=== PATIENT | male | born 1940 | race Two or more races ===

== ENCOUNTER 2017-10-07 11:38 | Inpatient (IN) | payer MEDICARE ==
--- NOTE | 2017-09-26 15:53 | HP ---
AMENDED REPORT NOW INCLUDES COSIGNER DESIGNATION - ESIGNED BEFORE ADJUSTMENT HISTORY AND PHYSICAL: DATE OF ADMISSION/SURGERY: 10/07/17 DATE OF OFFICE VISIT: 09/24/17 ATTENDING SURGEON: Dr. Sisi Dimas.* (DICTATED BY BETO US) PROCEDURE: Left total knee arthroplasty. CHIEF COMPLAINT: Left knee pain. HISTORY OF PRESENT ILLNESS: Mr. Ferguson is a 76-year-old gentleman with complaints of left knee pain secondary to end-stage osteoarthritis. He failed conservative treatment and elected to proceed with a left total knee arthroplasty, which is scheduled for 10/07/17. PAST MEDICAL HISTORY: Denies. PAST SURGICAL HISTORY: Right testicular surgery unknown. CURRENT MEDICATIONS: Ibuprofen 800 mg 3 times a day as needed. ALLERGIES: None. FAMILY HISTORY: Diabetes. SOCIAL HISTORY: This 76-year-old gentleman lives with his son and daughter-in- law. Denies use of drugs or alcohol. Does not smoke. REVIEW OF SYSTEMS: A complete 14-point review of systems was reviewed with the patient and it was all negative or noncontributory. PHYSICAL EXAMINATION GENERAL: He is well-developed, well-nourished, in no acute distress. VITAL SIGNS: He stands 5 feet 9 inches tall, weighs 232 pounds. His blood pressure is 154/78, his heart rate is 80. HEENT: Normocephalic, atraumatic. NECK: Supple. No palpable lymph nodes. PULMONARY: The lungs are clear to auscultation bilaterally. CARDIAC: Regular rate and rhythm. Strong S1, S2. ABDOMEN: Soft, nontender, and nondistended. MUSCULOSKELETAL: Left lower extremity: The skin is intact. There are no open wounds or abrasions. There is a moderate joint effusion. He has some tenderness over the medial lateral joint line. His range of motion is 15 to 120 degrees of flexion. There is a 10 degrees varus deformity. He has 2+ dorsalis pedis pulse and intact sensation. NEUROLOGIC: He is alert and oriented x3. ASSESSMENT AND PLAN: Mr. Ferguson is a 76-year-old gentleman with continued complaints of left knee pain secondary to end-stage osteoarthritis. He has failed conservative treatment and elected to proceed with a left total knee arthroplasty, which is scheduled for 10/07/[address] Dimas discussed the risks and benefits of the surgery at today's visit and all of his questions were answered. He will follow up with Dr. Dimas 2 weeks after the surgery. BETO US [id number]/[facility] #: [id number] [facility]PITALMadi
[~2017-10-07 11:38] MED LIST: Buffered Lidocaine 0.9% SYRIN* 5 ML/SYR SYRINGE INTRADERM ONE; Dexamethasone TAB* 4 MG PO ONE; DiMENhydriNATE IV* 50 MG/ML VIAL IV PUSH PRN; Famotidine TAB* 20 MG PO ONE; Gabapentin CAP(*) 300 MG PO ONE; Morphine INJ* 2 MG/ML 1 ML SYRINGE (TWO MG - NEW SYRINGE VERSION) IV PRN; Naloxone* 0.4 MG/ML 1 ML VIAL IV PRN; Ondansetron TAB* 4 MG PO ONE; PROCHLORPERAZINE INJ 5 MG/ML 2 ML VIAL IV PRN; Scopolamine 1.5 mg* PATCH TRANSDERM PRN; fentaNYL* 50 MCG/ML 2 ML VIAL (100 MCG VIAL) IV PRN; oxyCODONE/Acetamin 5/325 MG* TAB PO PRN
[2017-10-07] MEDS ORDERED: KETAMINE HCL* 50 MG/ML 10 ML VIAL ONE (11:40)
[2017-10-07] MEDS ORDERED: fentaNYL* 50 MCG/ML 2 ML VIAL (100 MCG VIAL) ONE (11:40)
[2017-10-07] MEDS ORDERED: Midazolam* 1 MG/ML 10 ML VIAL (10 MG) ONE (11:40)
--- OUTSIDE RECORDS SUMMARY | 2017-10-07 11:44 | XMS REPORT ---
:1940 External Reference #:[id number] Author Organization [facility] Address [address] [place] [address] [place] [address] Phone [phone] Care Team Providers Name Role Phone Deb Clemons FNP Primary Care Physician Unavailable Payers Type Date Identification Numbers Payment Provider Subscriber Medicare Primary Policy Number: [id number] Medicare Nathan Ferguson PayID: [id number] [facility] [address] [place] [address] Problems Date Description Provider Status Onset: 07/16/2017 Localized, primary osteoarthritis Sisi Dimas M.D. Active Family History Date Family Member(s) Problem(s) Comments General Diabetes Social History Type Date Description Comments Occupation Retired ETOH Use Denies alcohol use Smoking Patient has never smoked Exercise Type/Frequency Does not exercise Allergies, Adverse Reactions, Alerts Date Description Reaction Status Severity Comments 07/16/2017 NKDA active Medications Medication Date Status Form Strength Qnty SIG Indications Ordering Provider Ibuprofen Active Tablets 800mg by mouth Unknown 0 three times a day as needed Medications Administered in Office Medication Date Status Form Strength Qnty SIG Indications Ordering Provider Depomedrol Administered Injection Sisi 40MG 018 Shahbaz Dimas Depomedrol Administered Injection Sisi 40MG 018 Shabhaz Dimas Vital Signs Date Vital Result Comment 09/24/2017 Height 69 inches 5'9" Weight 232.00 lb Heart Rate 80 /min BP Systolic 154 mmHg BP Diastolic 78 mmHg BMI (Body Mass Index) 34.3 kg/m2 08/08/2017 Height 69 inches 5'9" Weight 231.00 lb BP Systolic Sitting 142 mmHg BP Diastolic Sitting 80 mmHg Respiratory Rate 16 /min Body Temperature 98.0 F Pain Level 0 BMI (Body Mass Index) 34.1 kg/m2 07/16/2017 Height 69 inches 5'9" Weight 231.00 lb Heart Rate 88 /min BP Systolic 150 mmHg BP Diastolic 88 mmHg BMI (Body Mass Index) 34.1 kg/m2 Results Description No Information Procedures Date CPT Code Description Status 07/16/2017 44846 Inject/Drain Joint/Bursa Major W/O US Completed Encounters Type Date Location Provider CPT E/M Dx Office Visit 08/08/2017 8:45a [facility] M.D. 27531 M17.0 [facility] M25.561 M25.562 M25.461 M25.462 Office Visit 07/16/2017 8:45a [facility] M.D. 58506 M17.0 [facility] M21.162 M21.161 M25.561 M25.562 M25.461 M25.462 Plan of Care Future Appointment(s):10/20/2017 8:30 am - Sisi Dimas M.D. at [facility]10/07/2017 2:30 pm - Uri Holt PA-C at [facility]10/07/2017 2:30 pm - BETO Hansen at [facility]10/07/2017 2:30 pm - Sisi Dimas M.D. at [facility]09/24/2017 - Sisi Dimas M.D.M17.0 Bilateral primary osteoarthritis of kneeFollow up:Follow up: 2 weeks after dewtdzoF75.562 Pain in left kneeM25.462 Effusion, left kneeM21.162 Varus deformity, not elsewhere classified, left knee
[2017-10-07] MEDS ORDERED: Ondansetron ODT TAB* 4 MG ONE (12:33)
[2017-10-07] MEDS ORDERED: Famotidine TAB* 20 MG ONE (12:33)
[2017-10-07] MEDS ORDERED: Gabapentin CAP(*) 300 MG ONE (12:33)
[2017-10-07] MEDS ORDERED: Dexamethasone TAB* 4 MG ONE (12:33)
[2017-10-07] MEDS ORDERED: ceFAZolin 2 GM PREMIX (*) 2 GM/50 ML BAG IVPB ONE (12:34)
[2017-10-07] MEDS ORDERED: Tranexamic Acid 1,000 MG/10 ML 1,000 MG in NS 0.9% 100 ML* 100 ML IV ONE (13:00)
[2017-10-07] MEDS ORDERED: Bupivacaine 0.5% PF 10 ML VIAL INJ ONE ×2 (15:57→16:47)
[2017-10-07] MEDS ORDERED: Labetalol IV* 5 MG/ML 20 ML VIAL ONE (16:46)
[2017-10-07] MEDS ORDERED: Lidocaine 2% PF * 5 ML VIAL ONE (16:46)
[2017-10-07] MEDS ORDERED: Propofol* 10 MG/ML 20 ML BTL IV PUSH ONE (16:47)
[2017-10-07] MEDS ORDERED: Bupivacaine 0.25% SDV PF* 10 ML VIAL INJ ONE (16:47)
[2017-10-07] MEDS ORDERED: Polyethylene Glycol 3350* 17 GM PACKET PO PRN (16:52)
[2017-10-07] MEDS ORDERED: Magnesium Hydroxide LIQ* 30 ML UDC PO PRN (16:52)
[2017-10-07] MEDS ORDERED: Bisacodyl SUPP* 10 MG SUPP PR PRN (16:52)
[2017-10-07] MEDS ORDERED: oxyCODONE/Acetamin 5/325 MG* TAB PO PRN (16:52)
[2017-10-07] MEDS ORDERED: Ondansetron TAB* 4 MG PO PRN (16:52)
[2017-10-07] MEDS ORDERED: diPHENhydraMINE IV* 50 MG/ML 1 ml VIAL (BENADRYL) IV PRN (16:52)
[2017-10-07] MEDS ORDERED: Ondansetron INJ* 2 MG/ML VIAL IV PRN (16:52)
[2017-10-07] MEDS ORDERED: Morphine INJ* 2 MG/ML 1 ML SYRINGE (TWO MG - NEW SYRINGE VERSION) IV PRN (16:52)
[2017-10-07] MEDS ORDERED: Warfarin TAB(*) 6 MG PO ONE (17:00)
--- NOTE | 2017-10-07 18:13 | RAD ---
Indication: Post LEFT total knee replacement. Comparison: July 16, 2017 radiographs. Technique: LEFT knee: AP and crosstable lateral views. Report: Total knee prosthesis in place. Negative for periprosthetic fracture. Gas and fluid noted in the joint space and superficial soft tissues anteriorly. IMPRESSION: #. Unremarkable immediate postop appearance following LEFT total knee replacement.
[2017-10-07] MEDS: Acetaminophen TAB* 325 MG PO SCH (18:31)
[2017-10-07] MEDS: Docusate CAP* 100 MG PO SCH (21:15)
[2017-10-07] MEDS: Magnesium Hydroxide LIQ* 30 ML UDC PO SCH (21:15)
[2017-10-07] MEDS: ceFAZolin 1 GM in Dextrose (*) 1 GM/50 ML BAG IVPB SCH (22:15)
[2017-10-08] MEDS: oxyCODONE TAB* 5 MG TAB PO PRN ×2 (00:12→08:54)
[2017-10-08] MEDS: Acetaminophen TAB* 325 MG PO SCH ×3 (01:28→15:30)
[2017-10-08] MEDS: oxyCODONE/Acetamin 5/325 MG* TAB PO PRN ×3 (04:33→17:22)
[2017-10-08 05:41] LABS: Hematocrit 39 % (42-52); Hemoglobin 13.5 g/dl (14.0-18.0); Mean Platelet Volume 7.6 um3 (7.4-10.4); Platelet Count 219 10^3/ul (150-450)
[2017-10-08 05:45] LABS: INR 1.08 (0.77-1.02)
[2017-10-08] MEDS: ceFAZolin 1 GM in Dextrose (*) 1 GM/50 ML BAG IVPB SCH ×2 (05:51→14:50)
[2017-10-08 05:55] LABS: EGFR Non-African American 75.2 (>60)
[2017-10-08] MEDS: Morphine TAB Extended Release (*) 15 MG TAB.ER PO SCH ×2 (08:54→20:48)
[2017-10-08] MEDS: Magnesium Hydroxide LIQ* 30 ML UDC PO SCH ×2 (08:55→20:49)
[2017-10-08] MEDS: Cyclobenzaprine TAB* 10 MG PO PRN ×2 (08:55→17:23)
[2017-10-08] MEDS: Docusate CAP* 100 MG PO SCH ×2 (08:55→20:49)
--- NOTE | 2017-10-08 09:02 | PN ---
Progress Note - Progress Note Date of Service: 10/08/17 SOAP: Subjective: []Patient seen at bedside. He feels well though he is having 8-9/10 pain with activity. At rest he has 7/10 pain. He is breathing well and has no complaints aside from cramping of the thigh. Objective: []General: Well appearing, NAD LLE: Left knee dressing CDI without erythema surrounding. DF/PF intact. DP2+ Calves supple and nontender without erythema, edema or palpable cords Assessment: []POD 1 sp left total knee arthroplasty Plan: []WBAT PT/OT Lovenox, coumadin 8 mg today Patient speaks primarily Mozambican. I am able to communicate with him well but please use a staff development manager if you have any difficulty or confusion Vital Signs Temp 97.7 F 10/08/17 00:07 Pulse 96 10/08/17 00:07 Resp 18 10/08/17 08:55 BP 154/86 10/08/17 00:07 Pulse Ox 97 10/08/17 00:07 Intake & Output 10/07/17 10/08/17 10/08/17 18:59 06:59 18:59 Intake Total 2300 995 100 Output Total 1000 925 Balance 1300 70 100 Weight 228 lb Intake: IV Fluids 2300 1GM TRANEXAMIC ACID 100ML 100 LR 2100 NS 100ML, Cefazolin 2G 100 IVPB 55 ABX - CEFAZOLIN 55 Oral 940 100 Output: Paulino 1000 925 Other: Estimated Blood Loss 400 Comment Laboratory Last Values Hgb 13.5 g/dl (14.0-18.0) L 10/08/17 05:21 Hct 39 % (42-52) L 10/08/17 05:21 Plt Count 219 10^3/ul (150-450) 10/08/17 05:21 MPV 7.6 um3 (7.4-10.4) 10/08/17 05:21 INR (Anticoag Therapy) 1.08 (0.77-1.02) H 10/08/17 05:22 Sodium 136 mmol/L (135-145) 10/08/17 05:22 Potassium 4.2 mmol/L (3.5-5.0) 10/08/17 05:22 Chloride 102 mmol/L (101-111) 10/08/17 05:22 Carbon Dioxide 25 mmol/L (22-32) 10/08/17 05:22 Anion Gap 9 mmol/L (2-11) 10/08/17 05:22 BUN 21 mg/dL (6-24) 10/08/17 05:22 Creatinine 0.97 mg/dL (0.67-1.17) 10/08/17 05:22 Est GFR ( Amer) 91.1 (>60) 10/08/17 05:22 Est GFR (Non-Af Amer) 75.2 (>60) 10/08/17 05:22 BUN/Creatinine Ratio 21.6 (8-20) H 10/08/17 05:22 Glucose 152 mg/dL (70-100) H 10/08/17 05:22 Calcium 8.8 mg/dL (8.6-10.3) 10/08/17 05:22
--- NOTE | 2017-10-08 10:15 | OP ---
DATE OF OPERATION: 10/07/17 - ROOM #353 DATE OF : 40 ATTENDING SURGEON: Sisi Dimas MD CLINICAL INFORMATICS PHYSICIAN: BETO Hair. Ms. Macedo did help throughout the procedure with preparation of the leg, wound retraction, manipulation of the knee, and wound closure. ANESTHESIOLOGIST: Dr. Zimmerman. ANESTHESIA: Spinal. PRE-OP DIAGNOSIS: Severe end-stage degenerative osteoarthritis of the left knee joint. POST-OP DIAGNOSIS: Severe end-stage degenerative osteoarthritis of the left knee joint. OPERATIVE PROCEDURE: Left total knee arthroplasty. BRIEF HISTORY/INDICATIONS: Mr. Ferguson is a 76-year-old male with years of increasingly severe left knee pain and deformity. Radiograph showed severe end - stage arthritis with [id number] contact with varus deformity. He failed conservative treatment with anti-inflammatories, physical therapy, and intra- articular injections. Due to continued pain and decreased quality of life, he elected to undergo left total knee arthroplasty. Informed consent was obtained from the patient. He understood the risks of surgery included, but were not limited to, bleeding, infection, damage to nearby structures, continued pain, need for further surgery, intraoperative fracture, nerve palsy, hardware failure or loosening, knee stiffness, loss of motion, stroke, heart attack, blood clot, and . The patient wished to proceed. INTRAOPERATIVE FINDINGS: Intraoperatively, the patient was noted to have severe end-stage arthritis with full-thickness loss of cartilage in all 3 compartments and extensive osteophyte formation. TOURNIQUET TIME: 49 minutes. COMPLICATIONS: None. ESTIMATED BLOOD LOSS: 200 cc. SPECIMEN: Bone and cartilage from the left knee joint sent to pathology. HARDWARE USED: This is cemented [employer] total knee arthroplasty hardware. Two packages of Simplex bone cement. For the femur, a left size 7 Oxinium posterior stabilized femoral component. For the tibia, Nesha II left tibial base plate size 7. For the insert, a 9 mm posterior stabilized articular insert size 7/8 and for the patella, a 38-mm 3-peg all poly patella. DESCRIPTION OF PROCEDURE: Mr. Ferguson was identified in the preanesthesia unit. His left lower extremity was marked as the correct operative side. Informed consent was signed and placed in the chart. The patient was taken to the operating room and placed under spinal anesthesia. A Paulino catheter was placed. Tourniquet was placed on the left thigh. Left lower extremity was prepped and draped in the usual sterile fashion. Preop time-out was made to correctly identify the patient, side, and site. Appropriate perioperative antibiotics were given within 1 hour of incision. Tourniquet was inflated and total tourniquet time for this procedure was 49 minutes. A midline incision was made with a 10-blade and carried down to the extensor mechanism. A new 10-blade was used to make a medial parapatellar arthrotomy. The patella was subluxed laterally. Electrocautery was used to subperiosteally elevate the soft tissue off the superomedial tibia. The knee was flexed up. Anterior horn of the lateral meniscus and ACL were sharply released. A drill was used to enter the distal femur. Intramedullary distal femoral cutting guide was pinned on the distal femur. An oscillating saw was used to make the distal femoral cut. External rotation guide was pinned on the distal femur and the distal femur was sized to a size 7. A size 6 multi- cutting jig was pinned on the distal femur. Oscillating saw was used to make the appropriate 4 chamfer cuts. PCL was completely released. Tibia was subluxed anteriorly. Extramedullary tibial cutting guide was pinned on the proximal tibia. Oscillating saw was used to make the proximal tibial cut perpendicular to the mechanical axis of the tibia. The bone was carefully removed. The knee was brought out into full extension. Spacer block had good fit with medial and lateral ligamentous balancing. The knee was in full extension. Flexion and extension gaps were well balanced. The knee was flexed up. Lamina behavioral specialist was placed both medially and laterally. Any remaining meniscus was carefully removed using electrocautery. Curved osteotome was used to remove any posterior osteophytes. Tibial tray and drop latoya were placed to once again confirm the satisfactory tibial cut and this was confirmed. A size 7 left femoral trial was impacted on to the distal femur and had good fit. The box for the posterior stabilized implant was prepared using a reamer and box cut osteotome. A size 7 tibial tray trial with a 9 mm insert trial was placed and the knee was taken through a range of motion. The knee had full extension to 130 degrees of flexion with good patellofemoral tracking. The patella was everted. A 9 mm of patellar bone and cartilage was carefully removed using an oscillating saw. The patella was sized to a size 38. Three peg holes were drilled through the size 38 guide. A 38 patellar trial was placed and the knee was taken through range of motion. There was satisfactory patellofemoral tracking. All trials were carefully removed. The tibia was subluxed anteriorly and sized to a size 7. Proximal tibia was prepared using a size 7 keel punch. All bony cut surfaces were copiously irrigated with sterile saline and dried. Final implants were cemented into place, starting with the tibia followed by the femur, and last the patella. A 9 mm insert trial was placed while the knee was brought out into full extension. Tourniquet was turned down at 49 minutes. Electrocautery was used to obtain meticulous hemostasis. Once the cement had fully cured, the insert trial was removed. Any excess cement around the capsule or hardware was removed. Final insert chosen was a 9 mm posterior stabilized articular insert, Nesha II size 7/8. This was locked into position on the tibial tray. Stability of the insert was checked and rechecked and noted to be stable. The knee was copiously irrigated with sterile saline. The extensor mechanism was closed using interrupted #1 Vicryls. The rest of the incision was closed in a layered fashion using 0 and 2-0 Vicryls. Skin was closed using running 3- 0 nylon suture. Sterile Xeroform, 4x4s, and Webril were used to cover the incision. Roddy wrap and cold pack were placed over this. The patient's anesthesia was reversed without difficulty. He was taken to the PACU in stable condition. Intended weightbearing will be weightbearing as tolerated. Intended DVT prophylaxis will be Coumadin with Lovenox bridge. [id number]/[facility] #: [id number] [facility]
[2017-10-08] MEDS: Enoxaparin(*) 30 MG/0.3 ML SYR SUBCUT SCH (11:49)
[2017-10-08] MEDS ORDERED: Warfarin TAB(*) 4 MG PO ONE (17:00)
[2017-10-09] MEDS: Acetaminophen TAB* 325 MG PO SCH ×3 (02:12→17:41)
[2017-10-09] MEDS: oxyCODONE/Acetamin 5/325 MG* TAB PO PRN ×2 (03:52→10:29)
[2017-10-09 05:40] LABS: Hematocrit 37 % (42-52); Hemoglobin 12.4 g/dl (14.0-18.0); Mean Platelet Volume 7.5 um3 (7.4-10.4); Platelet Count 205 10^3/ul (150-450)
[2017-10-09 05:46] LABS: INR 2.04 (0.77-1.02)
[2017-10-09] MEDS: oxyCODONE TAB* 5 MG TAB PO PRN ×2 (07:21→12:12)
[2017-10-09] MEDS: Morphine TAB Extended Release (*) 15 MG TAB.ER PO SCH (08:40)
[2017-10-09] MEDS: Docusate CAP* 100 MG PO SCH ×2 (08:40→20:51)
[2017-10-09] MEDS ORDERED: Pneumococcal *Vac Polyvalent 0.5 ML VIAL IM ONE (09:00)
[2017-10-09] MEDS: Magnesium Hydroxide LIQ* 30 ML UDC PO SCH ×2 (09:31→20:52)
--- NOTE | 2017-10-09 10:08 | PN ---
Progress Note - Progress Note Date of Service: 10/09/17 SOAP: Subjective: []Patient seen at bedside. He is feeling well with well controlled left knee pain. He denies chest pain, shortness of breath, abdominal upset. Objective: General: Well appearing, NAD LLE: Left knee dressing changed, incision CDI without erythema surrounding. DF/ PF intact. DP2+ Calves supple and nontender without erythema, edema or palpable cords Assessment: []POD 2 sp left total knee arthroplasty Plan: []WBAT PT/OT stop Lovenox, hold coumadin today Likely discharge home today Vital Signs Temp 99.3 F 10/09/17 07:22 Pulse 102 10/09/17 07:22 Resp 18 10/09/17 08:40 BP 130/78 10/09/17 07:22 Pulse Ox 97 10/09/17 07:22 Intake & Output 10/08/17 10/09/17 10/09/17 18:59 06:59 18:59 Intake Total 2157 980 360 Output Total 540 100 Balance 1617 880 360 Intake: IVPB 1397 ABX - CEFAZOLIN 55 LR 1342 Oral 760 980 360 Output: Urine 540 100 Paulino 0 Laboratory Last Values Hgb 12.4 g/dl (14.0-18.0) L 10/09/17 05:19 Hct 37 % (42-52) L 10/09/17 05:19 Plt Count 205 10^3/ul (150-450) 10/09/17 05:19 MPV 7.5 um3 (7.4-10.4) 10/09/17 05:19 INR (Anticoag Therapy) 2.04 (0.77-1.02) H 10/09/17 05:19 Sodium 136 mmol/L (135-145) 10/08/17 05:22 Potassium 4.2 mmol/L (3.5-5.0) 10/08/17 05:22 Chloride 102 mmol/L (101-111) 10/08/17 05:22 Carbon Dioxide 25 mmol/L (22-32) 10/08/17 05:22 Anion Gap 9 mmol/L (2-11) 10/08/17 05:22 BUN 21 mg/dL (6-24) 10/08/17 05:22 Creatinine 0.97 mg/dL (0.67-1.17) 10/08/17 05:22 Est GFR ( Amer) 91.1 (>60) 10/08/17 05:22 Est GFR (Non-Af Amer) 75.2 (>60) 10/08/17 05:22 BUN/Creatinine Ratio 21.6 (8-20) H 10/08/17 05:22 Glucose 152 mg/dL (70-100) H 10/08/17 05:22 Calcium 8.8 mg/dL (8.6-10.3) 10/08/17 05:22
[2017-10-09] MEDS: Enoxaparin(*) 30 MG/0.3 ML SYR SUBCUT SCH (11:47)
[2017-10-09 16:32] LABS: EGFR Non-African American 54.6 (>60)
[2017-10-09] MEDS: NS 0.9% 1000 ML* 1,000 ML IV ONE ×2 (17:30→22:14)
--- NOTE | 2017-10-09 19:52 | CONS ---
CC: MALIA Butcher; Dr. Dimas * CONSULTATION REPORT: DATE OF CONSULT: 10/09/17 PRIMARY CARE PROVIDER: MALIA Butcher ATTENDING PHYSICIAN WHILE IN THE HOSPITAL: Dr. Joni Kwon (report dictated by Juan Carlos Gamino NP). REQUESTING PHYSICIAN IN CONSULT: Dr. Dimas. REASON FOR MEDICAL CONSULT: Evaluation of tachycardia. HISTORY OF PRESENT ILLNESS: Mr. Ferguson is a 76-year-old male patient with really no past medical history, I refer you to Dr. Dimas's H and P, who has been having a significant amount of left knee pain. He sought care with Dr. Dimas and it was felt that he would benefit from a total knee replacement, which he underwent on 10/07/17. The first 2 days postoperatively, he had a rough course in the sense that he was having a significant amount of pain, he was requiring a fair amount of narcotics, he did not really have a good p.o. intake at that point. It was noted that he was tachycardic today and we were asked to evaluate and consult on this. In interviewing the patient, he says today is the best day he has felt. He denies any chest pain. Denies any shortness of breath. He says his pain in his knee is well controlled. He says he has not been having any vomiting or diarrhea. He does admit as does his that he really had not been eating or drinking in the last couple days as much as he should. He says he has been urinating. It has been dark. He denied having any calf pain. Denies having any again chest discomfort, heaviness, or pressure and says that he is not feeling lightheaded with position change. Because of the tachycardia, again we were asked to evaluate in consult. PAST MEDICAL HISTORY: Significant for arthritis only, but otherwise denied. PAST SURGICAL HISTORY: He has had a left total knee arthroplasty only and that was done 2 days ago. MEDICATIONS: Home meds include ibuprofen 800 mg every 6 hours as needed. Current meds include: 1. Tylenol 975 mg every 8 hours. 2. Dulcolax suppository 10 mg MD daily as needed. 3. Benadryl 12.5 mg every 6 hours as needed. 4. Flexeril 10 mg p.o. t.i.d. as needed. 5. LR at 160 cc an hour. 6. Lactulose 30 cc every 6 hours as needed. 7. Milk of mag 30 cc p.o. b.i.d. 8. Milk of mag 30 cc every 6 hours as needed. 9. Morphine 2 mg every 2 hours as needed. 10. MS Contin 30 mg every 12 hours as needed. 11. Zofran 4 mg IV or p.o. every 6 hours as needed. 12. Oxycodone 10 mg every 4 hours. 13. Percocet 1 to 2 tabs every 4 hours as needed. 14. MiraLAX 17 g p.o. daily. ALLERGIES TO MEDICATIONS: No known drug allergies. FAMILY HISTORY: His mother had a history of [place] and father was diabetic. SOCIAL HISTORY: He does not smoke. He does not drink. Surrogate decision maker is his son, Dr. Gio Ferguson. REVIEW OF SYSTEMS: There is no documented fever. He denies having any significant weight change. There is no double vision. He denies having any ear discharge. There is no rhinorrhea, no sore throat. No thyroid enlargement. Denies having any chest pain. There is no orthopnea. There is no nocturnal dyspnea. Denies having any abdominal pain. There is no nausea. There was no vomiting. No dysuria, no frequency. There was no seizure, no loss of consciousness. No pruritus and no skin ulcerations. Review of 14 systems was completed, all others negative. PHYSICAL EXAM: Vital Signs: Currently blood pressure 128/62 with a pulse of 110, respirations were 18, O2 sat 97%, temperature 98.3. General: At this time , Mr. Ferguson is a 76-year-old male patient. He is sitting in the hospital bed. He does not appear to be in any acute distress. He appears to be well nourished and well developed. HEENT: Head: Atraumatic and normocephalic. Eyes: EOMs are intact. Sclerae anicteric and not pale. Throat: Oral mucosa does appear to be dry. No oropharyngeal erythema. Neck was supple. Heart: Sounds S1, S2. He is tachycardic. No murmurs, rubs, or gallops. Lungs: Clear to auscultation bilaterally. No wheezes, rales, or rhonchi. Abdomen was soft, flat, nontender. Bowel sounds were present. Extremities: He has limited range of motion to the left lower extremity given this is the operative leg, but distal CSM checks are intact bilaterally. He has 5/5 in the right leg. He has 5/5 plantar-flexion in the left leg. He has 5/5 strength in the upper extremities. Neurologically, he is awake, he is alert, he is oriented x3. He had no gross focal deficits. His skin was grossly intact. DIAGNOSTIC STUDIES/LAB DATA: Today, WBC of 12.4, hematocrit of 37. INR of 2.04 today. His sodium was 136, this was yesterday; potassium of 4.2; chloride 102; bicarb 25; BUN 21; creatinine of 0.97; glucose of 152; a calcium of 8.8. He did have an EKG obtained today, which shows a sinus tachycardia, rate of 116. He had no ST elevation. He did appear to be depressed in lead I only. Reviewed to the previous EKG, that depression is new; in addition to this, the heart rate is much faster now, but no other changes were noted. Old medical records were reviewed. ASSESSMENT AND PLAN: Mr. Ferguson is a 76-year-old male patient, who was previously healthy, coming into the orthopedic services for an elective left total knee. We were asked to evaluate in consult for tachycardia. My recommendations at this point are: 1. Status post left total knee. I will defer the management to Dr. Dimas and her team. 2. Tachycardia. I suspect the etiology, this is probably secondary to hypovolemia. The patient really did not eat or drink much in the last couple of days because of pain and he was taking a fair amount of narcotics, which certainly decreased his p.o. intake. He on exam did appear to be dry to me. I think it would be safe though it is important to go ahead and get at least a BMP , a mag and a TSH. He is not having any shortness of breath. He is not having any chest pain. I do not think we need to pursue CTA workup or further cardiac workup unless he becomes symptomatic. His INR is therapeutic, but that is reassuring and argues against pulmonary embolism. He has been on DVT prophylaxis. He was on Lovenox and he is on warfarin. I do think he should be placed on telemetry. I would like to check orthostatic blood pressures. We may give him a liter of IV fluids right now and we will reevaluate the heart rate, but when you look back in his heart rate trend, it has slowly been increasing since his stay here and I think he may just fallen behind in terms of fluid status. We will repeat his labs today and we will check the CBC in the morning and repeat his BMP and we will get a BMP now. 3. DVT prophylaxis: He is on warfarin. INR is therapeutic. 4. Code status: Full code. 5. Fluids, electrolytes, and nutrition: He can have a regular diet and we are going to give him a liter of fluids. I will replace any electrolytes that I need to. TIME SPENT: Time spent on consult was 60 minutes, greater than half the time was spent [id number] with the patient obtaining my history and physical, other half time was spent going over the plan of care with the patient and implementing plan of care. I discussed the plan of care with my attending, Dr. Kwon, he is in agreement. JUAN CARLOS GAMINO NP [id number]/[facility] #: [id number] [facility]
[2017-10-09] MEDS ORDERED: Morphine TAB Extended Release (*) 30 MG TAB.ER PO SCH (21:00)
[2017-10-09] MEDS ORDERED: NS 0.9% 500 ML* 500 ML IV ONE (21:17)
[2017-10-09 22:10] LABS: ABS Basophils 0 10^3/ul (0-0.2); ABS Eosinophils 0.1 10^3/ul (0-0.6); ABS Lymphocytes 2.1 10^3/ul (1.0-4.8); ABS Monocytes 1.3 10^3/ul (0-0.8); ABS Neutrophils 9.8 10^3/ul (1.5-7.7); ABS Nucleated RBC 0 10^3/ul; Eosinophil % 1.1 % (0-6); Hematocrit 35 % (42-52); Hemoglobin 11.7 g/dl (14.0-18.0); Lymphocyte % 15.9 % (25-47); Mean Corpuscular HGB Conc 34 g/dl (31-36); Mean Corpuscular Hemoglobin 31 pg (27-31); Mean Corpuscular Volume 92 fL (80-94); Mean Platelet Volume 7.8 um3 (7.4-10.4); Nucleated Red Blood Cells % 0; Platelet Count 199 10^3/ul (150-450); Red Blood Count 3.77 10^6/ul (4.00-5.40); Red Cell Distribution Width 15 % (10.5-15); White Blood Count 13.4 10^3/ul (3.5-10.8)
--- NOTE | 2017-10-09 22:44 | PN ---
Progress Note - Progress Note Date of Service: 10/09/17 Note: Patient evaluated for progressive asymptomatic tachycardia. Mr Ferguson is a 76YO healthy male POD 2 L TKA who has had gradually increasing tachycardia over the past 22H. He denies chest pain, SOB, N/V, diaphoresis, cough, congestion, abdominal pain, or change in bowel/bladder. He reports feeling hot last night, but no chills. Vitals are afebrile & stable otherwise. Sherif Gamino NP added a troponin to a lab draw from 1500 which returned confirmed at 0.13. However, a fresh draw returned at 0.01 indicating the prior is inaccurate. ECG shows sinus tachycardia w/o ischemia or R heart strain. Lungs are CTAB. CV is TR/RR, no JVD. Abdomen: SNTND. LLE is swollen & tender as would be expected at this stage of recovery. RLE has no calf pain & Adonay's is negative. WBCs are 13k making him SIRS positive, will obtain blood & urine CXs. pCXR is expiratory and will be repeated. Will check BLE venous dopplars to assess for DVT. His creatinine is significantly elevated from baseline, he has been on prophylactic enoxaparin converted to warfarin which is now therapeutic making my suspicion for DVT/PE quite low. To avoid undue further stress on his kidneys as he is already on treatment, will not perform CTA chest. Continue close monitoring. No clear cut indication for ABX at this time, monitor WBC & temperature curves. Check ECHO in AM.
[2017-10-09 23:28] LABS: Urine Appearance Clear; Urine Blood 1+ (Negative); Urine Color Yellow; Urine Ketones Negative (Negative); Urine Protein 1+(30 mg/dL) (Negative); Urine Red Blood Cell Trace(0-2/hpf) (Absent); Urine Specific Gravity 1.021 (1.010-1.030); Urine Urobilinogen Negative (Negative); Urine White Blood Cell Trace(0-5/hpf) (Absent)
[2017-10-10 04:37] LABS: ABS Basophils 0.1 10^3/ul (0-0.2); ABS Eosinophils 0.2 10^3/ul (0-0.6); ABS Lymphocytes 2.1 10^3/ul (1.0-4.8); ABS Monocytes 1.2 10^3/ul (0-0.8); ABS Neutrophils 8.8 10^3/ul (1.5-7.7); ABS Nucleated RBC 0 10^3/ul; Eosinophil % 1.6 % (0-6); Hematocrit 34 % (42-52); Hemoglobin 11.4 g/dl (14.0-18.0); Lymphocyte % 17.2 % (25-47); Mean Corpuscular HGB Conc 33 g/dl (31-36); Mean Corpuscular Hemoglobin 30 pg (27-31); Mean Corpuscular Volume 91 fL (80-94); Mean Platelet Volume 7.7 um3 (7.4-10.4); Nucleated Red Blood Cells % 0.1; Platelet Count 179 10^3/ul (150-450); Red Blood Count 3.76 10^6/ul (4.00-5.40); Red Cell Distribution Width 15 % (10.5-15); White Blood Count 12.4 10^3/ul (3.5-10.8)
[2017-10-10 04:41] LABS: INR 1.94 (0.77-1.02)
[2017-10-10 04:51] LABS: EGFR Non-African American 65.8 (>60)
[2017-10-10] MEDS ORDERED: Scopolamine PATCH Remove* 1 NOTE MISC PATCH OFF ONE (06:27)
--- NOTE | 2017-10-10 07:37 | RAD ---
Indication: Tachycardia. Single frontal view of the chest performed at 2152 hours was reviewed. No prior study is available for comparison. Cardiomegaly is noted. No pleural fluid, pneumonia or pneumothorax is noted although there is poor inspiratory effort. IMPRESSION: NO ACTIVE CARDIOPULMONARY DISEASE IS NOTED. POOR INSPIRATION. R1
--- NOTE | 2017-10-10 07:41 | RAD ---
Indication: Tachycardia. Single frontal view of the chest performed at 2300 hours was reviewed. Comparison is made with previous exam dated October 09, 2017. No mediastinal shift is noted. Heart is of normal size and configuration. Lung douglass appear clear. IMPRESSION: NO ACTIVE CARDIOPULMONARY DISEASE IS NOTED.
--- NOTE | 2017-10-10 07:47 | RAD ---
Indication: Nonspecific left lower extremity edema. Duplex Doppler sonography of the deep venous system of both lower extremities was performed. Bilaterally the common femoral veins, proximal greater saphenous veins, proximal deep femoral veins, femoral veins, popliteal veins, posterior tibial veins and peroneal veins appear patent and compressible. IMPRESSION: NO EVIDENCE OF DEEP VENOUS THROMBOSIS OF EITHER LOWER EXTREMITY IS PRESENT.
--- NOTE | 2017-10-10 08:38 | PN ---
Subjective Date of Service: 10/10/17 Interval History: patient reports he feels much better today. He denies fever or chills. No SOB/ CP. Denies cough. Denies abdominal pain or diarrhea. Objective Active Medications: Acetaminophen (Tylenol Tab*) 650 mg PO Q6H PRN PRN Reason: FEVER/PAIN Bisacodyl (Dulcolax Supp*) 10 mg WI DAILY PRN PRN Reason: constipation Cyclobenzaprine HCl (Flexeril Tab*) 10 mg PO TID PRN PRN Reason: SPASMS Last Admin: 10/08/17 17:23 Dose: 10 mg Diphenhydramine HCl (Benadryl Iv*) 12.5 mg IV Q6H PRN PRN Reason: PRURITIS Docusate Sodium (Colace Cap*) 100 mg PO BID YEHUDA Last Admin: 10/09/17 20:51 Dose: 100 mg Lactulose (Lactulose*) 30 ml PO Q6H PRN PRN Reason: constipation Magnesium Hydroxide (Milk Of Magnesia Liq*) 30 ml PO Q6H PRN PRN Reason: constipation Morphine Sulfate (Morphine Inj ((Syringe))*) 2 mg IV Q2H PRN PRN Reason: PAIN Last Admin: 10/08/17 06:59 Dose: 2 mg Ondansetron HCl (Zofran Inj*) 4 mg IV Q6H PRN PRN Reason: nausea Ondansetron HCl (Zofran Tab*) 4 mg PO Q6H PRN PRN Reason: NAUSEA Oxycodone HCl (Roxycodone Tab*) 5 mg PO Q4H PRN PRN Reason: PAIN Polyethylene Glycol/Electrolytes (Miralax*) 17 gm PO DAILY PRN PRN Reason: Constipation Vital Signs - 8 hr 10/10/17 10/10/17 00:54 03:50 Temperature 99.5 F 98.4 F Pulse Rate 118 114 Respiratory 16 20 Rate Blood Pressure 144/79 132/67 (mmHg) O2 Sat by Pulse 96 95 Oximetry Oxygen Devices in Use Now: None Appearance: well developed 76 yo male Result Diagrams: 10/10/17 04:18 10/10/17 04:18 Assess/Plan/Problems-Billing Assessment: 76 yo male with PMH of arthritis who underwent and elective left total knee with Dr. Dimas. Hospitalist Medicine was asked to consuly for tachycardia. - Patient Problems (1) History of total left knee replacement Comment: - Dispo per Ortho Team - Pain management - PT/OT - Bowel regimen (2) Tachycardia Comment: - unclear etiology. Continues to be tachy. EKG showing sinus tachycardia last night, will repeat EKG this am. Possible fluid overload? DC fluids. PE should be ruled out. Did meet SIRS criteria with mild leukocytosis and tachycardia - possible elevated WBCs likely to be reactive 2nd to surgery. U/A and Chest xray unremarkable. low grade temp. Blood cx pending Plan to obtain CTA - renal function now wnls. Discussed case with Dr. Dimas (3) DVT prophylaxis Comment: coumadin 1.9 Status and Disposition: inpatient. Dispo per surgery. Hospital medicine will continue to follow.
[2017-10-10] MEDS: oxyCODONE TAB* 5 MG TAB PO PRN ×2 (08:58→21:46)
[2017-10-10] MEDS: Docusate CAP* 100 MG PO SCH ×2 (08:58→19:26)
[2017-10-10] MEDS ORDERED: NS 0.9% 1000 ML* 1,000 ML IV SCH (09:15)
[2017-10-10] MEDS ORDERED: NS 0.9% 500 ML* 500 ML IV ONE (10:57)
--- NOTE | 2017-10-10 12:37 | PN ---
Subjective Date of Service: 10/10/17 Interval History: HOSPITALIST PROGRESS NOTE Patient seen and examined at bedside. Care reviewed and d/w Claudia Adamson. He feels well today. Denies chest pain, palpitations, dyspnea. Was able to walk around with PT and did well. Still feels thirsty. Family History: Unchanged from Admission Social History: Unchanged from Admission Past Medical History: Unchanged from Admission Objective Active Medications: Acetaminophen (Tylenol Tab*) 650 mg PO Q6H PRN PRN Reason: FEVER/PAIN Bisacodyl (Dulcolax Supp*) 10 mg MD DAILY PRN PRN Reason: constipation Cyclobenzaprine HCl (Flexeril Tab*) 10 mg PO TID PRN PRN Reason: SPASMS Last Admin: 10/08/17 17:23 Dose: 10 mg Diphenhydramine HCl (Benadryl Iv*) 12.5 mg IV Q6H PRN PRN Reason: PRURITIS Docusate Sodium (Colace Cap*) 100 mg PO BID YEHUDA Last Admin: 10/10/17 08:58 Dose: 100 mg Sodium Chloride (Ns 0.9% 1000 Ml*) 1,000 mls @ 100 mls/hr IV PER RATE YEHUDA Lactulose (Lactulose*) 30 ml PO Q6H PRN PRN Reason: constipation Magnesium Hydroxide (Milk Of Magnesia Liq*) 30 ml PO Q6H PRN PRN Reason: constipation Morphine Sulfate (Morphine Inj ((Syringe))*) 2 mg IV Q2H PRN PRN Reason: PAIN Last Admin: 10/08/17 06:59 Dose: 2 mg Ondansetron HCl (Zofran Inj*) 4 mg IV Q6H PRN PRN Reason: nausea Ondansetron HCl (Zofran Tab*) 4 mg PO Q6H PRN PRN Reason: NAUSEA Oxycodone HCl (Roxycodone Tab*) 5 mg PO Q4H PRN PRN Reason: PAIN Last Admin: 10/10/17 08:58 Dose: 5 mg Polyethylene Glycol/Electrolytes (Miralax*) 17 gm PO DAILY PRN PRN Reason: Constipation Vital Signs - 8 hr 10/10/17 10/10/17 08:24 08:58 Temperature 99.5 F Pulse Rate 109 Respiratory 16 16 Rate Blood Pressure 127/70 (mmHg) O2 Sat by Pulse 97 Oximetry Oxygen Devices in Use Now: None Appearance: Pleasant elderly gentleman sitting up in a recliner in NAD. Eyes: No Scleral Icterus Ears/Nose/Mouth/Throat: Mucous Membranes Moist Neck: Trachea Midline Respiratory: Symmetrical Chest Expansion and Respiratory Effort, Clear to Auscultation Cardiovascular: RRR - Normal S1 and S2 Extremities: - - Cryo unit to left knee Neurological: Alert and Oriented x 3, NL Muscle Strength and Tone Result Diagrams: 10/10/17 04:18 10/10/17 04:18 Assess/Plan/Problems-Billing Assessment: Mr Ferguson is a 76yo M with PMH of arthritis admitted for an elective left total knee replacement. Hospitalist service consulted for tachycardia. - Patient Problems (1) History of total left knee replacement Comment: - Management as per Ortho. (2) Tachycardia Comment: - Likely secondary to dehydration. Patient was described as "sedated with pain medication" right after surgery and they feel he did not drink a lot of fluids. Creatinine elevation is compatible with it. - Continue IV hydration. - He denies chest pain or dyspnea, but is at risk for PE due to recent surgery - will wait for echo and check V/Q scan - if they show abnormalities would then pursue CTA chest as patient's renal function is now returning to normal and would prefer to avoid dye load (patient and family also would prefer to avoid IV contrast). LE doppler was negative. - He did meet SIRS criteria with mild leukocytosis and tachycardia, likely reactive in the setting of surgery. U/A and Chest xray unremarkable. (3) DVT prophylaxis Comment: - Warfarin. (4) Full code status Status and Disposition: Hospitalist service will continue to follow.
--- NOTE | 2017-10-10 14:02 | RAD ---
Indication: Tachycardia status post surgery. Ventilation and perfusion lung scan was performed. Ventilation scan was performed after aerosol administration of 9.9 mCi of xenon-133. Perfusion lung scan was performed after intravenous injection of 6.6 mCi of technetium 99m macroaggregated albumin. There are defects present in the right upper lobe and right lower lobe. Perfusion defects are also noted in the left upper lobe as well as segmental defects in the left lower lobe. No corresponding ventilation defect is noted. Chest x-ray failed to reveal any infiltrates. Findings are consistent with a high probability scan for pulmonary embolus. IMPRESSION: Multiple lobar and subsegmental perfusion defects without evidence of ventilation defect. This is a high probability scan for pulmonary embolus.
--- NOTE | 2017-10-10 14:04 | PN ---
Progress Note - Progress Note Date of Service: 10/10/17 SOAP: Subjective: Patient seen at bedside. He is feeling well with well controlled left knee pain. He denies chest pain, shortness of breath, abdominal upset. Objective: General: Well appearing, NAD LLE: Left knee dressing CDI without erythema surrounding. DF/PF intact. DP2+ Calves supple and nontender without erythema, edema or palpable cords Vital Signs Temp 99.7 F 10/10/17 11:40 Pulse 108 10/10/17 11:40 Resp 16 10/10/17 13:40 BP 129/69 10/10/17 11:40 Pulse Ox 98 10/10/17 11:40 Intake & Output 10/09/17 10/10/17 10/10/17 18:59 06:59 18:59 Intake Total 1160 3346 134 Output Total 150 425 370 Balance 1010 2921 -236 Weight 193 lb 11.2 oz 193 lb 11.2 oz Intake: IV Fluids 500 1986 LR 500 487 NS (0.9%) 1499 IVPB 134 LR 134 Oral 660 1360 Output: Urine 150 425 370 Other: Estimated Void Large Date of Last Bowel 10/10/17 Movement # Bowel Movements 1 Estimated Stool Amount Large # Voids 1 Assessment: []POD 3 sp left total knee arthroplasty Plan: []WBAT PT/OT stop Lovenox, 6mg coumadin tonight Hospitalists following, awaiting echo
[2017-10-10 14:57] LABS: EGFR Non-African American 65.1 (>60)
[2017-10-10] MEDS ORDERED: Enoxaparin(*) 100 MG/ML SYR SUBCUT SCH (15:00)
--- NOTE | 2017-10-10 16:22 | ECHO ---
Patient: BRANDEN PLASENCIA [facility] Rec#: [id number] : 1940 Date: 10/10/2017 Age: 76y Height: 175.26 cm / 69.0 in Weight: 87.7 kg / 193.3 lbs Sex: M BSA: 2.04 Room#: 353 Admit Date#: 10/10/2017 Type: Inpatient Referring: Juan Carlos Gamino NP Reading: Sebastian Dao MD Court Assistant: [facility] Tran[facility]ch[facility] Indication: Abnormal EKG BP: 132/67 HR: 107 Rhythm: Tachycardia Findings History: S/P L. TKA 10/08/17, no known cardiac history. Technical Comments: The study quality is fair. Completed at 1600. Left Ventricle: The left ventricular chamber size is normal. Mild concentric left ventricular hypertrophy is observed. Global left ventricular wall motion and contractility are within normal limits. The left ventricle appears hyperdynamic. The estimated ejection fraction is greater than 65%. Abnormal left ventricular diastolic function is observed. The left ventricular diastolic filling pattern is consistent with pseudonormalization. Left Atrium: The left atrium is mildly dilated. Right Ventricle: Moderator Band present. The right ventricle is mildly dilated. The right ventricular global systolic function is hyperdynamic. Right Atrium: The right atrium is mildly dilated. Aortic Valve: The aortic valve is trileaflet. The aortic valve leaflets are mildly thickened. There is no evidence of aortic regurgitation. There is no evidence of aortic stenosis. Mitral Valve: The mitral valve leaflets are mildly thickened. There is a trace of mitral regurgitation. There is no evidence of mitral stenosis. Tricuspid Valve: The tricuspid valve leaflets are normal. There is mild to moderate tricuspid regurgitation. The right ventricular systolic pressure is estimated at 47 mmHg. There is evidence of moderate pulmonary hypertension. There is no tricuspid stenosis. Pulmonic Valve: The pulmonic valve appears normal. There is trace to mild pulmonic regurgitation. There is no pulmonic stenosis. Pericardium: There is no significant pericardial effusion. A pericardial fat pad is visualized. Aorta: There is mild dilatation of the ascending aorta. There is no dilatation of the aortic arch. The aortic root is normal in size. Pulmonary Artery: The main pulmonary artery is not well visualized. Venous: The inferior vena cava appears normal in size. There is a greater than 50% respiratory change in the inferior vena cava dimension. Summary: There was not any prior study for comparison. Conclusions Mild concentric left ventricular hypertrophy is observed. The left ventricle appears hyperdynamic. The estimated ejection fraction is greater than 65%. The left ventricular diastolic filling pattern is consistent with pseudonormalization. The left atrium is mildly dilated. The right atrium is mildly dilated. The aortic valve leaflets are mildly thickened. There is a trace of mitral regurgitation. There is mild to moderate tricuspid regurgitation. The right ventricular systolic pressure is estimated at 47 mmHg. There is evidence of moderate pulmonary hypertension. There is trace to mild pulmonic regurgitation. There is mild dilatation of the ascending aorta. The right ventricle is mildly dilated. The right ventricular global systolic function is hyperdynamic. Measurements Name Value Normal Range RVIDd (AP) 2D 3.3 cm (0.9 - 2.6) RVDdMajor (2D) 4.7 cm (2.2 - 4.4) RAd ISD 4CH 5.4 cm (3.4 - 4.9) RA (A4C)W 4.4 cm (2.9 - 4.6) IVSd (2D) 1.2 cm (0.6 - 1) LVPWd (2D) 1.1 cm (0.6 - 1) LVIDd (2D) 3.8 cm (3.6 - 5.4) LVIDs (2D) 2.1 cm - LV FS (2D) 45 % (25 - 45) Aortic Annulus 2.5 cm (1.4 - 2.6) Ao root diameter (2D) 3.5 cm (2.1 - 3.5) Ascending Ao 3.7 cm (2.1 - 3.4) Aortic arch 3 cm (1.8 - 3.4) LA dimension (AP) 2D 4.5 cm (2.3 - 3.8) LAd ISD 4CH 6 cm (2.9 - 5.3) LA ISD 4CH W 5.1 cm (2.5 - 4.5) Name Value Normal Range LA ESV BP (A/L) index 29 ml/m2 - Name Value Normal Range MV E-wave Vmax 0.9 m/sec - MV deceleration time 187 msec - MV A-wave Vmax 0.7 m/sec - MV E:A ratio 1.2 ratio - LV septal e' Vmax 0.09 m/sec - LV lateral e' Vmax 0.1 m/sec - LV E:e' septal ratio 10 ratio - LV E:e' lateral ratio 9 ratio - Name Value Normal Range AV Vmax 1.7 m/sec - AV VTI 28.3 cm - AV peak gradient 11 mmHg - AV mean gradient 7 mmHg - LVOT Vmax 1.1 m/sec - LVOT VTI 22.7 cm - LVOT peak gradient 5 mmHg - LVOT mean gradient 3 mmHg - VELMA Vmax 0.12 m/sec - Name Value Normal Range TR Vmax 3.3 m/sec - TR peak gradient 44 mmHg - RAP 3 mmHg - RVSP 47 mmHg - IVC diameter 2 cm - Name Value Normal Range PV Vmax 1.2 m/sec - PV peak gradient 5 mmHg -
[2017-10-10] MEDS: Apixaban* 5 MG TAB PO SCH ×2 (16:36→21:46)
[2017-10-10] MEDS ORDERED: Warfarin TAB(*) 6 MG PO ONE (17:00)
[2017-10-10] MEDS: NS 0.9% 1000 ML* 1,000 ML IV SCH (18:15)
--- NOTE | 2017-10-10 18:38 | CONS ---
Amended report to enter date of consultation. CONSULTATION REPORT: DATE OF CONSULT: 10/10/2017. REFERRING PHYSICIAN: Dr. Palomares. PRIMARY CARE PHYSICIAN: Deb Clemons in [place]. REASON FOR CONSULTATION: PE. HISTORY OF PRESENT ILLNESS: This is a 76-year-old male, generally healthy, who came in for a right total knee replacement on 10/08/17. Surgery went well. He had very significant pain in the leg the day after surgery with very little oral intake. On the evening of the , he was noted to have increasing tachycardia. The hospitalist was consulted and it was thought to be due to dehydration after he was not eating and had a lot of diarrhea. He was started on IV fluids, but overnight symptoms progressed. He had an EKG that was mildly elevated. He has been placed on Lovenox 30 mg and Coumadin 6 mg a day, day #1 of surgery. INR on 10/08/17 was 1.08. INR on 10/09/17, was 2.04, PTT was normal at 33.5 preoperatively. Other blood work included creatinine of 1.28, up from baseline of 0.97 on the , and the sodium mildly low at 130. He had a CBC done with a white count of 12.4, hemoglobin 11.4, MCV 91, platelets 179, hemoglobin on 10/08/17 was 13.5. He recently had a lower extremity Doppler on 10/09/17 in the evening that was negative for DVT and he had a VQ scan done on 10/10/17, at 11 a.m. that showed multiple lobar and segmental perfusion defects without evidence of ventilation defect making it a high probability study. PAST MEDICAL HISTORY: He had injured testicle at 45 years old, requiring surgery on one. He does not see his doctor regularly. He has had a PSA checked, but has not had a screening colonoscopy in the last 10 years. MEDICATIONS: At home, none. ALLERGIES: None. FAMILY HISTORY: Three sisters. There is diabetes, hypertension, and low thyroid in the family as well as arthritis and no blood clots and no cancer history. SOCIAL HISTORY: He lives in [place], retired contractor. He never smoked, drinks occasionally. He is . He has 3 children and 5 grandchildren. Son is a physician in the emergency room at [facility] [facility]. REVIEW OF SYSTEMS: Other than discussed above, a 14-point review is negative. No history of bleeding or easy bruising. DIAGNOSTIC STUDIES/LAB DATA: Labs: As noted above. ASSESSMENT AND PLAN: A 76-year-old male with new pulmonary embolism on day #2 postoperatively for a knee replacement. DVT with major transient risk factor. Cause of deep vein thrombosis with likely surgery with concurrent dehydration from poor oral intake and diarrhea. He had been on Coumadin and while the INR had elevated to 2.0, it was only on day #2 of treatment. Factor VII as well as protein C and protein S decrease quickly raising the INR, but it takes several additional days for thrombin to drop and for Coumadin to be an effective anticoagulant. For that reason I would not consider this event to be a Coumadin failure. 1. I agree with Eliquis 10 mg b.i.d. for 7 days and 5 mg b.i.d. Plan 3 months of treatment and then stop. 2. He has mild anemia, we will check iron studies, B12 3. Check LFTs given rate of increase of the INR. He could have fatty liver with some baseline liver dysfunction. 4. I recommend age appropriate cancer screening including colonoscopy. 5. Call our office for any problems with bleeding, bruising, change in bowel habits, shortness of breath, chest pain, questions or any other concerns. 6. We will follow up as outpatient. [id number]/[facility] #: [id number] COURTNEY
[2017-10-11] MEDS: oxyCODONE TAB* 5 MG TAB PO PRN ×2 (04:19→08:23)
[2017-10-11] MEDS: NS 0.9% 1000 ML* 1,000 ML IV SCH (04:35)
[2017-10-11 05:43] LABS: ABS Basophils 0.1 10^3/ul (0-0.2); ABS Eosinophils 0.3 10^3/ul (0-0.6); ABS Lymphocytes 1.6 10^3/ul (1.0-4.8); ABS Neutrophils 6.5 10^3/ul (1.5-7.7); ABS Nucleated RBC 0 10^3/ul; Eosinophil % 3.7 % (0-6); Hematocrit 31 % (42-52); Hemoglobin 10.4 g/dl (14.0-18.0); Lymphocyte % 16.9 % (25-47); Mean Corpuscular HGB Conc 34 g/dl (31-36); Mean Corpuscular Hemoglobin 31 pg (27-31); Mean Corpuscular Volume 91 fL (80-94); Mean Platelet Volume 7.9 um3 (7.4-10.4); Nucleated Red Blood Cells % 0; Platelet Count 198 10^3/ul (150-450); Red Blood Count 3.35 10^6/ul (4.00-5.40); Red Cell Distribution Width 14 % (10.5-15); White Blood Count 9.5 10^3/ul (3.5-10.8)
[2017-10-11 05:47] LABS: INR 2.16 (0.77-1.02)
[2017-10-11] MEDS: Docusate CAP* 100 MG PO SCH ×2 (07:35→22:10)
[2017-10-11] MEDS: Apixaban* 5 MG TAB PO SCH ×2 (08:23→22:09)
[2017-10-11] MEDS: Cyanocobalamin TAB* 500 MCG PO SCH (08:23)
[2017-10-11] MEDS: Acetaminophen TAB* 325 MG PO PRN ×3 (08:23→22:08)
--- NOTE | 2017-10-11 09:39 | PN ---
Progress Note - Progress Note Date of Service: 10/11/17 SOAP: Subjective: Pt. is feeling well, wants to go home. Denies chest pain or shortness of breath Objective: Vital Signs: Temp Pulse Resp BP Pulse Ox 98.7 F 98 16 132/68 97 10/11/17 04:47 10/11/17 04:47 10/11/17 08:23 10/11/17 04:47 10/11/17 04:48 Laboratory Results - last 24 hr 10/10/17 10/10/17 10/10/17 04:18 14:25 15:43 WBC RBC Hgb Hct MCV MCH MCHC RDW Plt Count MPV Neut % (Auto) Lymph % (Auto) [place] % (Auto) Eos % (Auto) Baso % (Auto) Absolute Neuts (auto) Absolute Lymphs (auto) Absolute Monos (auto) Absolute Eos (auto) Absolute Basos (auto) Absolute Nucleated RBC Nucleated RBC % INR (Anticoag Therapy) Sodium 130 L Potassium TNP 3.7 Chloride 100 L Carbon Dioxide 25 Anion Gap 5 BUN 20 Creatinine 1.10 Est GFR ( Amer) 78.7 Est GFR (Non-Af Amer) 65.1 BUN/Creatinine Ratio 18.2 Glucose 133 H Hemoglobin A1c 6.1 H Calcium 7.6 L Ferritin Total Bilirubin AST ALT Alkaline Phosphatase Total Protein Albumin Globulin Albumin/Globulin Ratio Vitamin B12 Folate 10/11/17 10/11/17 10/11/17 05:04 05:04 05:04 WBC 9.5 RBC 3.35 L Hgb 10.4 L Hct 31 L MCV 91 MCH 31 MCHC 34 RDW 14 Plt Count 198 MPV 7.9 Neut % (Auto) 67.9 Lymph % (Auto) 16.9 L [place] % (Auto) 10.8 H Eos % (Auto) 3.7 Baso % (Auto) 0.7 Absolute Neuts (auto) 6.5 Absolute Lymphs (auto) 1.6 Absolute Monos (auto) 1.0 H Absolute Eos (auto) 0.3 Absolute Basos (auto) 0.1 Absolute Nucleated RBC 0 Nucleated RBC % 0 INR (Anticoag Therapy) 2.16 H Sodium 133 L Potassium 3.7 Chloride 102 Carbon Dioxide 25 Anion Gap 6 BUN 15 Creatinine 0.92 Est GFR ( Amer) 96.8 Est GFR (Non-Af Amer) 80.0 BUN/Creatinine Ratio 16.3 Glucose 107 H Hemoglobin A1c Calcium 7.8 L Ferritin 366.7 H Total Bilirubin 0.70 AST 17 ALT 19 Alkaline Phosphatase 40 Total Protein 5.9 L Albumin 3.1 L Globulin 2.8 Albumin/Globulin Ratio 1.1 Vitamin B12 135 L Folate 9.59 LLE - dressing changed, hematoma and mod swelling. Inc c/d/i. distally mild swelling and nvi. Assessment: 76 yo M pod 4 s/p LTKA with B PE postop Plan: cont anticoag per Dr Piper - appreciate hem/onc input wbat lle pt/ot plan will be tentative d/c to home 10/12
--- NOTE | 2017-10-11 15:13 | PN ---
Subjective Date of Service: 10/11/17 Interval History: HOSPITALIST PROGRESS NOTE Patient seen and examined at bedside. Daughter translates - he is a little tired today as he just returned from walking with PT. Denies CP, palpitations, dyspnea. Family History: Unchanged from Admission Social History: Unchanged from Admission Past Medical History: Unchanged from Admission Objective Active Medications: Acetaminophen (Tylenol Tab*) 650 mg PO Q6H PRN PRN Reason: FEVER/PAIN Last Admin: 10/11/17 13:59 Dose: 650 mg Apixaban (Eliquis*) 10 mg PO BID [facility] Stop: 10/16/17 21:01 Last Admin: 10/11/17 08:23 Dose: 10 mg Bisacodyl (Dulcolax Supp*) 10 mg [place] DAILY PRN PRN Reason: constipation Cyanocobalamin (Vitamin B12 Tab*) 1,000 mcg PO DAILY [facility] Last Admin: 10/11/17 08:23 Dose: 1,000 mcg Cyclobenzaprine HCl (Flexeril Tab*) 10 mg PO TID PRN PRN Reason: SPASMS Last Admin: 10/08/17 17:23 Dose: 10 mg Diphenhydramine HCl (Benadryl Iv*) 12.5 mg IV Q6H PRN PRN Reason: PRURITIS Docusate Sodium (Colace Cap*) 100 mg PO BID [facility] Last Admin: 10/11/17 07:35 Dose: Not Given Lactulose (Lactulose*) 30 ml PO Q6H PRN PRN Reason: constipation Magnesium Hydroxide (Milk Of Magnesia Liq*) 30 ml PO Q6H PRN PRN Reason: constipation Morphine Sulfate (Morphine Inj ((Syringe))*) 2 mg IV Q2H PRN PRN Reason: PAIN Last Admin: 10/08/17 06:59 Dose: 2 mg Ondansetron HCl (Zofran Inj*) 4 mg IV Q6H PRN PRN Reason: nausea Ondansetron HCl (Zofran Tab*) 4 mg PO Q6H PRN PRN Reason: NAUSEA Oxycodone HCl (Roxycodone Tab*) 5 mg PO Q4H PRN PRN Reason: PAIN Last Admin: 10/11/17 08:23 Dose: 5 mg Polyethylene Glycol/Electrolytes (Miralax*) 17 gm PO DAILY PRN PRN Reason: Constipation Vital Signs - 8 hr 10/11/17 10/11/17 10/11/17 07:38 08:00 08:14 Temperature 98.5 F Pulse Rate 100 Respiratory 16 16 16 Rate Blood Pressure 136/71 (mmHg) O2 Sat by Pulse 97 Oximetry 10/11/17 10/11/17 10/11/17 08:23 11:20 11:49 Temperature 98.6 F Pulse Rate 88 Respiratory 16 14 16 Rate Blood Pressure 131/70 (mmHg) O2 Sat by Pulse 98 Oximetry Oxygen Devices in Use Now: None Appearance: Pleasant gentleman sitting up in a recliner in NAD. Eyes: No Scleral Icterus Ears/Nose/Mouth/Throat: Mucous Membranes Moist Neck: Trachea Midline Respiratory: Symmetrical Chest Expansion and Respiratory Effort, Clear to Auscultation Cardiovascular: RRR - Normal S1 and S2 Extremities: - - CDI to LLE Neurological: Alert and Oriented x 3, NL Muscle Strength and Tone Result Diagrams: 10/11/17 05:04 10/11/17 05:04 Assess/Plan/Problems-Billing Assessment: Mr Ferguson is a 76yo M with PMH of arthritis admitted for an elective left total knee replacement. Hospitalist service consulted for tachycardia. - Patient Problems (1) History of total left knee replacement Comment: - Management as per Ortho. (2) Tachycardia Comment: - Secondary to dehydration and PE. - Euvolemic now - will d/c IVF. (3) Pulmonary embolism Comment: - Heme/Onc input appreciated - continue Eliquis for 3 months. (4) Anemia Comment: - B12 deficiency anemia - will replete. (5) DVT prophylaxis Comment: - Eliquis. (6) Full code status Status and Disposition: Hospitalist service will continue to follow. Anticipate d/c in AM.
[2017-10-12 06:33] LABS: Hematocrit 30 % (42-52); Mean Platelet Volume 7.2 um3 (7.4-10.4); Platelet Count 212 10^3/ul (150-450)
[2017-10-12 06:38] LABS: INR 1.69 (0.77-1.02)
[2017-10-12] MEDS: Acetaminophen TAB* 325 MG PO PRN (07:16)
--- NOTE | 2017-10-12 08:21 | PN ---
Subjective Date of Service: 10/12/17 Interval History: HOSPITALIST PROGRESS NOTE Patient seen and examined at bedside. He feels well today. Denies dizziness, CP, palpitations, dyspnea. Pain is well controlled. Hoping to be discharged today. Family History: Unchanged from Admission Social History: Unchanged from Admission Past Medical History: Unchanged from Admission Objective Active Medications: Acetaminophen (Tylenol Tab*) 650 mg PO Q6H PRN PRN Reason: FEVER/PAIN Last Admin: 10/12/17 07:16 Dose: 650 mg Apixaban (Eliquis*) 10 mg PO BID [facility] Stop: 10/16/17 21:01 Last Admin: 10/11/17 22:09 Dose: 10 mg Bisacodyl (Dulcolax Supp*) 10 mg [place] DAILY PRN PRN Reason: constipation Cyanocobalamin (Vitamin B12 Tab*) 1,000 mcg PO DAILY [facility] Last Admin: 10/11/17 08:23 Dose: 1,000 mcg Cyclobenzaprine HCl (Flexeril Tab*) 10 mg PO TID PRN PRN Reason: SPASMS Last Admin: 10/08/17 17:23 Dose: 10 mg Diphenhydramine HCl (Benadryl Iv*) 12.5 mg IV Q6H PRN PRN Reason: PRURITIS Docusate Sodium (Colace Cap*) 100 mg PO BID [facility] Last Admin: 10/11/17 22:10 Dose: Not Given Lactulose (Lactulose*) 30 ml PO Q6H PRN PRN Reason: constipation Magnesium Hydroxide (Milk Of Magnesia Liq*) 30 ml PO Q6H PRN PRN Reason: constipation Morphine Sulfate (Morphine Inj ((Syringe))*) 2 mg IV Q2H PRN PRN Reason: PAIN Last Admin: 10/08/17 06:59 Dose: 2 mg Ondansetron HCl (Zofran Inj*) 4 mg IV Q6H PRN PRN Reason: nausea Ondansetron HCl (Zofran Tab*) 4 mg PO Q6H PRN PRN Reason: NAUSEA Oxycodone HCl (Roxycodone Tab*) 5 mg PO Q4H PRN PRN Reason: PAIN Last Admin: 10/11/17 08:23 Dose: 5 mg Polyethylene Glycol/Electrolytes (Miralax*) 17 gm PO DAILY PRN PRN Reason: Constipation Vital Signs - 8 hr 10/12/17 10/12/17 10/12/17 00:35 03:15 07:29 Temperature 98.0 F 98.3 F 98.3 F Pulse Rate 89 88 95 Respiratory 16 16 16 Rate Blood Pressure 114/60 131/69 140/77 (mmHg) O2 Sat by Pulse 97 98 99 Oximetry Oxygen Devices in Use Now: None Appearance: Pleasant gentleman lying in bed in NAD. Eyes: No Scleral Icterus Ears/Nose/Mouth/Throat: Mucous Membranes Moist Neck: Trachea Midline Respiratory: Symmetrical Chest Expansion and Respiratory Effort, Clear to Auscultation Cardiovascular: RRR - Normal S1 and S2 Neurological: Alert and Oriented x 3, NL Muscle Strength and Tone Result Diagrams: 10/12/17 06:21 10/11/17 05:04 Assess/Plan/Problems-Billing Assessment: Mr Ferguson is a 76yo M with PMH of arthritis admitted for an elective left total knee replacement. Hospitalist service consulted for tachycardia. - Patient Problems (1) History of total left knee replacement Comment: - Management as per Ortho. (2) Tachycardia Comment: - Secondary to dehydration and PE. - Euvolemic now. (3) Pulmonary embolism Comment: - Echo showed hyperdynamic LV/RV, due to dehydration and PE, pulm pressure was 47 - will benefit of repeat echo in 6-8 weeks to monitor RV function and pulmonary pressure. - Heme/Onc input appreciated. - Continue Eliquis 10mg BID to complete 7 days of treatment and then 5mg BID to complete 3 months. (4) Anemia Comment: - B12 deficiency anemia - will replete. - Needs f/u with Dr. Piper as outpatient. (5) DVT prophylaxis Comment: - Eliquis. (6) Full code status Status and Disposition: Stable for d/c from a medical point of view.
[2017-10-12] MEDS: Apixaban* 5 MG TAB PO SCH (08:22)
[2017-10-12] MEDS: Docusate CAP* 100 MG PO SCH (08:22)
[2017-10-12] MEDS: Cyanocobalamin TAB* 500 MCG PO SCH (08:22)
--- NOTE | 2017-10-12 11:43 | PN ---
Progress Note - Progress Note Date of Service: 10/12/17 SOAP: Subjective: Pt is doing well. pain controlled. Denies Cp/SOB, F/C or calf pain Objective: 76 y/o WDWN NAD, A&Ox3 LLE- dressing c/d/i, calf soft NT, +DF/PF ankle, +2 DP pulse, SILT distally Vital Signs Temp Pulse Resp BP Pulse Ox 98.3 F 95 16 140/77 99 10/12/17 07:29 10/12/17 07:29 10/12/17 07:29 10/12/17 07:29 10/12/17 07:29 Laboratory Results - last 24 hr 10/12/17 10/12/17 06:21 06:21 Hgb 10.0 L Hct 30 L Plt Count 212 MPV 7.2 L INR (Anticoag Therapy) 1.69 H Assessment: 76 yo M pod 5 s/p LTKA with B PE postop Plan: cont anticoag per Dr Piper - appreciate hem/onc input Vit B 12 on DC oxycodone for pain, colace for constipation keflex x 7 days on DC for redness around wound wbat lle pt/ot d/c to home with VNS today
[2017-10-12] MEDS: oxyCODONE TAB* 5 MG TAB PO PRN (12:39)
[2017-10-12 12:53] VITALS: BP 134/68
--- NOTE | 2017-10-12 21:33 | DS ---
DISCHARGE SUMMARY: DATE OF ADMISSION: 10/07/17 DATE OF DISCHARGE: 10/12/17 PROVIDER: Dr. Sisi Dimas* (dictated by BETO Grimm). ADMITTING DIAGNOSIS: Status post left total knee arthroplasty for severe left knee osteoarthritis. SECONDARY DIAGNOSES: Denies any current problems. CONSULTATIONS: PT/OT, Medicine, and Hematology. HISTORY OF PRESENT ILLNESS: Mr. Ferguson is a 76-year-old gentleman with complaints of left knee pain due to end-stage osteoarthritis. He failed conservative measures and elected to undergo a left total knee arthroplasty with Dr. Dimas on 10/07/17. HOSPITAL COURSE: Mr. Ferguson was admitted to [facility] on 10/07/17. He underwent a left total knee arthroplasty. Postoperatively, he recovered in the short-stay surgical unit. Post day 1, his Paulino was removed and he was able to urinate on his own. He advanced to a regular diet without difficulty and his pain was controlled with p.o. Percocet and he was restarted on pain medications. His labs remained stable; however, he developed tachycardia. He was able to weight bear as tolerated on the left lower extremity. He advanced appropriately with physical therapy and occupational therapy. DVT prophylaxis was being managed with Lovenox and Coumadin until he reached a therapeutic INR. The patient remained continued to be tachycardic and was diagnosed with bilateral pulmonary embolisms. Cardiology was consulted and placed him on Eliquis for the treatment of the bilateral PEs. By postop day 5, he was orthopedically and medically stable for discharge to home with VNS services. DISCHARGE CONDITION: Stable. DISCHARGE MEDICATIONS: He was only taking aspirin and this was discontinued while on the Eliquis. New medications on discharge to include: 1. Eliquis 5 mg tabs 2 tabs by mouth twice a day x7 days, then 1 tab by mouth twice a day for 3 months. 2. Keflex 500 mg 1 by mouth 4 times a day x7 days. 3. Vitamin B12 1000 mcg 1 by mouth daily. 4. Docusate capsules 100 mg 2 to 3 times a day as needed for constipation. 5. Oxycodone 5 mg 1 to 2 every 4 to 6 hours as needed for pain. DISCHARGE INSTRUCTIONS: The patient is weightbearing as tolerated. It is okay for him to shower postop day 3. No swimming, bathing, or submerging the wound. Use gentle soap to pat dry, recover with gauze and Roddy. Call orthopedic office with increased drainage, redness, increased pain or fever. Go to the ER with chest pain or shortness of breath. He does have some mild redness, which is likely just a hematoma in the incision, but he was given 7 days of Keflex as preventative measure. He should be on a regular diet with increased fluids and fiber to prevent constipation. He should continue to use stool softeners and call if no bowel movement within 48 hours. He will continue PT and OT. Visiting nurses to do wound checks. He will continue Eliquis 10 mg twice a day x7 days, then 5 mg twice a day x3 months per Dr. Piper, Hematology recommendations. He should take vitamin B12 1000 mcg daily as recommended by Dr. Palomares. He will use oxycodone and Tylenol for pain. He will require antibiotics prior to any dental work. He will follow up with Dr. Dimas in 10 to 14 days. He should follow up with his primary care physician within 1 week and follow up with Dr. Piper in 1 to 2 weeks. BETO GRIMM [id number]/[facility] #: [id number] [place]
== END 2017-10-12 13:10 | disposition home health service (06) | DRG 470 ==
LOC: AA 11:38 → SSU 18:24
PROVIDERS: ADMIT Orthopaedic Surgery Adult Reconstructive Orthopaedic Surgery; ATTEND Orthopaedic Surgery Adult Reconstructive Orthopaedic Surgery
PROC: 0SRD069 Replacement of Left Knee Joint with Oxidized Zirconium on Polyethylene Synthetic Substitute, Cemented, Open Approach (ICD-10-PCS; principal; 2017-10-07 14:00)
DX: M17.12 Unilateral primary osteoarthritis, left knee (principal); I26.99 Other pulmonary embolism without acute cor pulmonale; K59.00 Constipation, unspecified; E86.0 Dehydration; D51.9 Vitamin B12 deficiency anemia, unspecified; R00.0 Tachycardia, unspecified; Z79.1 Long term (current) use of non-steroidal anti-inflammatories (NSAID); Z82.49 Family history of ischemic heart disease and other diseases of the circulatory system; Z83.3 Family history of diabetes mellitus; Z83.49 Family history of other endocrine, nutritional and metabolic diseases; Z82.61 Family history of arthritis
CPT/HCPCS: 36415; 71045; 78582; 80048; 80053; 81003; 81015; 82570; 82607; 82728; 82746; 83036; 83605; 83735; 84300; 84443; 84484; 85014; 85018; 85025; 85049; 85610; 87040; 87086; 90732; 93005; 93306; 93970; A9270-GY; A9540; A9558; C1776; G8978-GP-CM; G8979-GP-CJ; G8987-GO-CJ; G8988-GO-CI; G8989-GO-CI; J0690; J1650; J2250; J2270; J2704; J3010; J3490; J8540